=== PATIENT | female | born 1965 | race Caucasian/White ===

== ENCOUNTER 2018-03-07 20:41 | Emergency (ER) | payer BC ==
[~2018-03-07] VITALS: Ht 154.9 cm; Wt 56.2 kg
[2018-03-07] MEDS ORDERED: SODIUM CHLORIDE 0.9% 1000ML 1,000 ML IV STA (21:10)
[2018-03-07] MEDS ORDERED: PROMETHAZINE HCL (IM) 25 MG/ML VIAL IV STA (21:10)
[2018-03-07] MEDS ORDERED: ACETAMINOPHEN 1000 MG/100 ML IV STA (21:10)
[2018-03-07] MEDS ORDERED: ACETAMINOPHEN 325 MG TAB ONE (21:11)
[2018-03-07] MEDS ORDERED: ACETAMINOPHEN 325 MG TAB PO ONE (21:15)
[2018-03-07 21:31] LABS: BASOPHILS % 0.5 % (0.0-1.0); EOSINOPHILS % 0.4 % (0.0-6.0); HEMATOCRIT 34.7 % (34.2-44.1); HEMOGLOBIN 11.3 g/dL (12.0-16.0); LYMPHOCYTES # (AUTO) 1.3 (1.0-3.2); LYMPHOCYTES % 16.7 % (18.0-39.1); MEAN CORPUSCULAR HEMOGLOBIN 26.8 pg (28-32); MEAN CORPUSCULAR HGB CONC 32.6 g/dL (31-35); MEAN CORPUSCULAR VOLUME 82.4 fL (81-99); MONOCYTES # (AUTO) 0.1 (0.2-0.8); MONOCYTES % 1.4 % (4.4-11.3); NEUTROPHILS # (AUTO) 6.4 (2.1-6.9); NEUTROPHILS % 80.6 % (38.7-80.0); PLATELET COUNT 267 x10e3/uL (140-360); RED BLOOD COUNT 4.21 x10e6/uL (3.6-5.1); RED CELL DISTRIBUTION WIDTH 16.1 % (11.7-14.4)
[2018-03-07] MEDS ORDERED: CEFTRIAXONE SOD 1 GM VIAL IV STA (21:42)
[2018-03-07 21:45] LABS: BILIRUBIN,URINE NEGATIVE (NEGATIVE); CLARITY,URINE CLOUDY (CLEAR); COLOR,URINE YELLOW (YELLOW); KETONES,URINE NEGATIVE (NEGATIVE); LEUKOCYTE ESTERASE ,URINE 2+ (NEGATIVE); NITRITE,URINE NEGATIVE (NEGATIVE); PROTEIN,URINE DIPSTICK 2+ (NEGATIVE); URINE UROBILINOGEN 0.2 mg/dL (0.2 - 1)
[2018-03-07 21:47] LABS: ALANINE AMINOTRANSFERASE 15 IU/L (0-55); ALBUMIN 4.2 g/dL (3.5-5.0); ALKALINE PHOSPHATASE 108 IU/L (40-150); ANION GAP 18.6 mmol/L (8-16); BLOOD UREA NITROGEN 11 mg/dL (7-26); BUN/CREATININE RATIO 15 (6-25); CALCIUM 10.1 mg/dL (8.4-10.2); CARBON DIOXIDE 23 mmol/L (22-29); CHLORIDE 101 mmol/L (98-107); CREATININE, SERUM 0.74 mg/dL (0.57-1.11); EST GLOMERULAR FILTRATION RATE > 60 ML/MIN (60-); GLUCOSE 94 mg/dL (74-118); POTASSIUM 4.6 mmol/L (3.5-5.1); SODIUM 138 mmol/L (136-145)
[2018-03-07 21:55] LABS: BACTERIA,URINE FEW /HPF
[2018-03-07 21:56] LABS: AMPHETAMINES SCREEN,URINE NEGATIVE (NEGATIVE); BENZODIAZEPINES SCREEN,URINE NEGATIVE (NEGATIVE); PHENCYCLIDINE SCREEN,URINE NEGATIVE (NEGATIVE)
--- NOTE | 2018-03-07 22:24 | Diagnostic Imaging Report ---
EXAM: CT Abdomen and Pelvis WITHOUT contrast INDICATION: Flank pain, stone. COMPARISON: None. TECHNIQUE: Abdomen and pelvis were scanned utilizing a multidetector helical scanner from the lung base to the pubic symphysis without administration of IV contrast. Absence of intravenous contrast decreases sensitivity for detection of focal lesions and vascular pathology. Coronal and sagittal reformations were obtained. Stone protocol is performed. IV CONTRAST: None. ORAL CONTRAST: None RADIATION DOSE: Total DLP: 220.06 mGy*cm Estimated effective dose: (DLP x 0.015 x size factor) mSv COMPLICATIONS: None FINDINGS: LINES and TUBES: None. LOWER THORAX: Unremarkable HEPATOBILIARY: No focal hepatic lesions. No biliary ductal dilation. GALLBLADDER: There are cholecystectomy clips. SPLEEN: No splenomegaly. PANCREAS: No focal masses or ductal dilatation. ADRENALS: No adrenal nodules KIDNEYS/URETERS: There is mild right-sided hydroureteronephrosis without evidence of radiopaque stone along the tract. No cystic or solid mass lesions. No stones. GI TRACT: No abnormal distention, wall thickening, or evidence of bowel obstruction. Bariatric surgery changes noted in the gastric fundus and body . There are also postsurgical changes in the mid small bowel compatible with prior segmental resection. Appendix is not clearly identified. There is however no fat stranding or adenopathy in the right lower quadrant to suggest appendicitis. PELVIC ORGANS/BLADDER: Unremarkable. LYMPH NODES: No lymphadenopathy. VESSELS: There is mild atherosclerotic disease in the aorta and major arterial branches. PERITONEUM / RETROPERITONEUM: No free air or fluid. BONES: No fractures, lytic or blastic lesions SOFT TISSUES: Unremarkable. IMPRESSION: 1. Right kidney is slightly swollen with perirenal fat stranding and mild hydroureter nephrosis. No evidence of distal obstruction by stone or mass. This findings may be related to pyelonephritis or recently passed stone Signed by: Dr. Young Zepeda M.D. on 03/07/2018 10:20 PM
[2018-03-07] MEDS ORDERED: SODIUM CHLORIDE 0.9% 1000ML 1,000 ML IV ONE (22:45)
[2018-03-07] MEDS ORDERED: CEFDINIR300 MG PO (23:59)
[2018-03-07] MEDS ORDERED: ZOFRAN ODT4 MG SL (23:59)
[2018-03-07] MEDS ORDERED: PYRIDIUM100 MG PO (23:59)
[2018-03-08] VITALS: BP 120/71
[2018-03-12] MEDS ORDERED: LEVAQUIN500 MG PO (06:28)
== END 2018-03-08 00:13 | disposition home or self-care (01) ==
LOC: ER 20:41
DX: R10.9 Unspecified abdominal pain (principal); R11.2 Nausea with vomiting, unspecified; F32.9 Major depressive disorder, single episode, unspecified; N10 Acute pyelonephritis; Z98.84 Bariatric surgery status
CPT/HCPCS: 36415; 74176; 80053; 80307; 81001; 85025; 87040; 87086; 87186; 99284; J0696; J2550; J7030

== ENCOUNTER 2018-03-09 22:32 | Inpatient (IN) | payer BC ==
[~2018-03-09] VITALS: Ht 154.9 cm; Wt 68.6 kg
[~2018-03-09 22:32] MED LIST: CEFDINIR300 MG PO; PYRIDIUM100 MG PO; ZOFRAN ODT4 MG SL
--- OUTSIDE RECORDS SUMMARY | 2018-03-09 22:35 | XMS REPORT | Continuity of Care Document ---
Author Author [facility] Organization [facility] Address [address] [place] [address] Phone Unavailable Care Team Providers Care Terrestrial Ecologist Name Role Phone JANICE TABARES (NON STAFF) PCP Insurance Providers Guarantor Bita Aj Address [address] [place] [address] Email [email or web address] [facility] Policy Number [id number] Subscriber's Name Bita Aj Relationship 18 Self / Same As Patient Group Number [id number] Advance Directives Directive Response Recorded Date/Time Does the patient have an advance directive? No 03/07/18 10:36pm If yes, is advance directive on file with [facility]? No 03/07/18 10:36pm If not on file with [facility] will patient provide a copy? Yes 03/07/18 10:36pm Do you have a Directive to Physician? No 03/07/18 10:36pm Do you have a Medical Power of Honing Machine Operator Production? No 03/07/18 10:36pm Do you have an out of hospital Do Not Resuscitate Order? No 03/07/18 10:36pm Do you have any special needs we should be aware of? No 03/07/18 10:36pm Do you have a support person here with you today? Yes 03/07/18 10:36pm Did patient receive Notice of Privacy Practices? Yes 03/07/18 10:36pm Did patient receive patient rights and responsibilities? Yes 03/07/18 10:36pm Problems No problem information available. Medications Current Home Medications Medication Dose Units Route Directions Days Qty Instructions Start Date Cefdinir (Omnicef) 300 Mg Capsule 300 Mg Oral Twice A Day Ondansetron (Zofran Odt) 4 Mg Tab.rapdis 4 Mg Sublingual Every 6 Hours as needed for Nausea Phenazopyridine Hcl (Pyridium) 100 Mg Tablet 200 Mg Oral Three Times A Day Social History Smoking Status Start Date Stop Date Never Smoker Hospital Discharge Instructions No hospital discharge instruction information available. Plan of Care Discharge Date 03/08/18 12:13am Disposition HOME, SELF-CARE Condition at Discharge Stable Instructions/Education Provided Fever - Adult Flank Pain Pyelonephritis Forms Provided Work/School Excuse Prescriptions See Medication Section Referrals JANICE TABARES (NON STAFF) Order Date: Call for an appointment Address: [address] [place] [id number] Note: DRINK PLENTY OF FLUIDS NO ALCOHOL GET PLENTY OF REST. RETURN TO ER IF CONDITION WORSENS OR SYMPTOMS PERSIST. Functional Status No functional status information available. Allergies, Adverse Reactions, Alerts Allergen Type Severity Reaction Status Last Updated Tetracycline Allergy Severe Active 03/07/18 Immunizations No immunization information available. Vital Signs Acute Vital Signs Vital Response Date/Time Temperature (Fahrenheit) 99.6 degrees F (97.6 - 99.5) 03/08/2018 12:00am Pulse Pulse Rate (adult) 104 bpm (60 - 90) 03/08/2018 12:00am Respiratory Rate 19 bpm (12 - 24) 03/08/2018 12:00am Blood Pressure 120/71 mm Hg 03/08/2018 12:00am Height 5 ft 1 in 03/07/2018 9:03pm Weight 124 lb 03/07/2018 9:03pm Body Mass Index 23.4 kg/m^2 03/07/2018 9:03pm Results Laboratory Results Test Name Result Units Flags Reference Collection Date/Time Result Date/ Time Comments White Blood Count 7.95 x10e3/uL 4.8-10.8 03/07/2018 9:03/07/2018 9 :32pm Red Blood Count 4.21 x10e6/uL 3.6-5.1 03/07/2018 9:03/07/2018 9: 32pm Hemoglobin 11.3 g/dL L 12.0-16.0 03/07/2018 9:03/07/2018 9:32pm Hematocrit 34.7 % 34.2-44.1 03/07/2018 9:03/07/2018 9:32pm Mean Corpuscular Volume 82.4 fL 81-99 03/07/2018 9:03/07/2018 9: 32pm Mean Corpuscular Hemoglobin 26.8 pg L 28-32 03/07/2018 9:2017 9:32pm Mean Corpuscular Hemoglobin Concent 32.6 g/dL 31-35 03/07/2018 9:03/07/2018 9:32pm Red Cell Distribution Width 16.1 % H 11.7-14.4 03/07/2018 9:2017 9:32pm Platelet Count 267 x10e3/uL 140-360 03/07/2018 9:03/07/2018 9: 32pm Neutrophils (%) (Auto) 80.6 % H 38.7-80.0 03/07/2018 9:03/07/2018 9 :32pm Lymphocytes (%) (Auto) 16.7 % L 18.0-39.1 03/07/2018 9:03/07/2018 9 :32pm Monocytes (%) (Auto) 1.4 % L 4.4-11.3 03/07/2018 9:03/07/2018 9: 32pm Eosinophils (%) (Auto) 0.4 % 0.0-6.0 03/07/2018 9:03/07/2018 9: 32pm Basophils (%) (Auto) 0.5 % 0.0-1.0 03/07/2018 9:03/07/2018 9:32pm IM GRANULOCYTES % 0.4 % 0.0-1.0 03/07/2018 9:03/07/2018 9:32pm Neutrophils # (Auto) 6.4 2.1-6.9 03/07/2018 9:25pm 03/07/2018 9:32pm Lymphocytes # (Auto) 1.3 1.0-3.2 03/07/2018 9:03/07/2018 9:32pm Monocytes # (Auto) 0.1 L 0.2-0.8 03/07/2018 9:2503/07/2018 9:32pm Eosinophils # (Auto) 0.0 0.0-0.4 03/07/2018 9:03/07/2018 9:32pm Basophils # (Auto) 0.0 0.0-0.1 03/07/2018 9:03/07/2018 9:32pm Absolute Immature Granulocyte (auto 0.03 x10e3/uL 0-0.1 03/07/2018 9: 03/07/2018 9:32pm Urine Color YELLOW YELLOW 03/07/2018 9:03/07/2018 9:45pm Urine Clarity CLOUDY H CLEAR 03/07/2018 9:03/07/2018 9:45pm Urine Specific [place] 1.010 1.010-1.025 03/07/2018 9:252017 9:45pm Urine pH 6 5 - 7 03/07/2018 9:2503/07/2018 9:45pm Urine Leukocyte Esterase 2+ H NEGATIVE 03/07/2018 9:25pm 03/07/2018 9: 45pm Urine Nitrite NEGATIVE NEGATIVE 03/07/2018 9:03/07/2018 9:45pm Urine Protein 2+ H NEGATIVE 03/07/2018 9:25pm 03/07/2018 9:45pm Urine Glucose (UA) NEGATIVE NEGATIVE 03/07/2018 9:25pm 03/07/2018 9: 45pm Urine Ketones NEGATIVE NEGATIVE 03/07/2018 9:25pm 03/07/2018 9:45pm Urine Opiates Screen NEGATIVE NEGATIVE 03/07/2018 9:25pm 03/07/2018 9 :56pm Urine Barbiturates Screen NEGATIVE NEGATIVE 03/07/2018 9:25pm 2017 9:56pm Urine Phencyclidine Screen NEGATIVE NEGATIVE 03/07/2018 9:25pm 2017 9:56pm Urine Amphetamines Screen NEGATIVE NEGATIVE 03/07/2018 9:25pm 2017 9:56pm Urine Methamphetamines Screen NEGATIVE NEGATIVE 03/07/2018 9:25pm 9:56pm Urine Benzodiazepines Screen NEGATIVE NEGATIVE 03/07/2018 9:25pm 9:56pm This test provides only a screen. Positive results should be repeated by a confirmatory test. Urine Cocaine Screen NEGATIVE NEGATIVE 03/07/2018 9:25pm 03/07/2018 9 :56pm Urine Cannabinoids Screen NEGATIVE NEGATIVE 03/07/2018 9:25pm 2017 9:56pm THESE RESULTS ARE FOR MEDICAL TREATMENT ONLY *THIS REPORT CONTAINS UNCONFIRMED SCREENING RESULTS* POSITIVE RESULTS WILL BE CONFIRMED BY REFERENCE LAB UPON REQUEST CUT-OFF DRUG CLASS CONCENTRATION ng/mL Amphetamines 1000 Methamphetamines 1000 Cocaine 300 Opiate 300 Phencyclidine 25 Cannabinoid 50 Barbiturates 300 Benzodiazepine 300 Methadone 300 Urine Methadone Screen NEGATIVE NEGATIVE 03/07/2018 9:25pm 2017 9:56pm THESE RESULTS ARE FOR MEDICAL TREATMENT ONLY *THIS REPORT CONTAINS UNCONFIRMED SCREENING RESULTS* POSITIVE RESULTS WILL BE CONFIRMED BY REFERENCE LAB UPON REQUEST CUT-OFF DRUG CLASS CONCENTRATION ng/mL Amphetamines 1000 Methamphetamines 1000 Cocaine Metabolite 300 Opiate 300 Phencyclidine 25 Cannabinoid 50 Barbiturates 300 Benzodiazepine 300 Methadone 300 Urine Urobilinogen 0.2 mg/dL 0.2 - 1 03/07/2018 9:25pm 03/07/2018 9: 45pm Urine Bilirubin NEGATIVE NEGATIVE 03/07/2018 9:25pm 03/07/2018 9: 45pm Urine Blood 2+ H NEGATIVE 03/07/2018 9:25pm 03/07/2018 9:45pm Urine WBC 11-20 /HPF H 0-5 03/07/2018 9:25pm 03/07/2018 9:55pm Urine RBC 6-10 /HPF H 0-5 03/07/2018 9:25pm 03/07/2018 9:55pm Urine Bacteria FEW /HPF NONE 03/07/2018 9:25pm 03/07/2018 9:55pm Urine Epithelial Cells NONE /LPF NONE 03/07/2018 9:25pm 03/07/2018 9: 55pm Sodium Level 138 mmol/L 136-145 03/07/2018 9:25pm 03/07/2018 9:47pm Potassium Level 4.6 mmol/L 3.5-5.1 03/07/2018 9:03/07/2018 9:47pm Chloride Level 101 mmol/L 98-107 03/07/2018 9:03/07/2018 9:47pm Carbon Dioxide Level 23 mmol/L 22-03/07/2018 9:03/07/2018 9: 47pm Anion Gap 18.6 mmol/L H 8-03/07/2018 9:03/07/2018 9:47pm Blood Urea Nitrogen 11 mg/dL 7-03/07/2018 9:03/07/2018 9:47pm Creatinine 0.74 mg/dL 0.57-1.11 03/07/2018 9:03/07/2018 9:47pm BUN/Creatinine Ratio 15 05-0603/07/2018 9:03/07/2018 9:47pm Estimat Glomerular Filtration Rate > 60 ML/MIN 6003/07/2018 9: 9:47pm Ranges were taken from the National Kidney Disease Education Program and the National Kidney Foundation literature. Reference ranges: 60 or greater: Normal 16-59 (for 3 consecutive months): Chronic kidney disease 15 or less: Kidney failure Glucose Level 94 mg/dL 74-118 03/07/2018 9:03/07/2018 9:47pm Calcium Level 10.1 mg/dL 8.4-10.2 03/07/2018 9:03/07/2018 9:47pm Total Bilirubin 0.4 mg/dL 0.2-1.2 03/07/2018 9:03/07/2018 9:47pm Aspartate Amino Transf (AST/SGOT) 23 IU/L 5-34 03/07/2018 9:2017 9:47pm Alanine Aminotransferase (ALT/SGPT) 15 IU/L 0-55 03/07/2018 9: 9:47pm Total Protein 8.5 g/dL H 6.5-8.1 03/07/2018 9:03/07/2018 9:47pm Albumin 4.2 g/dL 3.5-5.0 03/07/2018 9:03/07/2018 9:47pm Globulin 4.3 g/dL H 2.3-3.5 03/07/2018 9:25pm 03/07/2018 9:47pm Albumin/Globulin Ratio 1.0 0.8-2.0 03/07/2018 9:25pm 03/07/2018 9: 47pm Alkaline Phosphatase 108 IU/L 40-150 03/07/2018 9:25pm 03/07/2018 9: 47pm Procedures Procedure Status Date Provider(s) CT of abdomen and pelvis without contrast Active 03/07/18 YEE SUTHERLAND MANAGER CONSUMER INSIGHTS Encounters Encounter Location Arrival/Admit Date Discharge/Depart Date Attending Provider Departed Emergency Room [facility] 03/07/18 8:41pm 12:13am TERESA DYE MD
--- OUTSIDE RECORDS SUMMARY | 2018-03-09 22:35 | XMS REPORT ---
Author Author [facility] Address Unknown Phone Unavailable Care Team Providers Care Ssis Architect Name Role Phone TERESA DYE Unavailable Unavailable Problems This patient has no known problems. Allergies, Adverse Reactions, Alerts This patient has no known allergies or adverse reactions. Medications This patient has no known medications. Results Test Description Test Time Test Comments Text Results Atomic Results Result Comments CT ABDOMEN/PELVIS WO [address] [address] Patient Name: JENNIFER HONEYCUTT MR #: [id number] : 1965 Age/Sex: 52/F Req #: [id number] Adm Physician: Ordered by: YEE SUTHERLAND PEANUT PICKER Report # : [id number] Location: ER Room/Bed: Procedure: [id number] CT/CT ABDOMEN/PELVIS WO Exam Date: 03/07/18 Exam Time: 2134 REPORT STATUS: Signed EXAM: CT Abdomen and Pelvis WITHOUT contrast INDICATION: Flank pain, stone. COMPARISON: None. TECHNIQUE: Abdomen and pelvis were scanned utilizing a multidetector helical scanner from the lung base to the pubic symphysis without administration of IV contrast. Absence of intravenous contrast decreases sensitivity for detection of focal lesions and vascular pathology. Coronal and sagittal reformations were obtained. Stone protocol is performed. IV CONTRAST: None. ORAL CONTRAST: None RADIATION DOSE: Total DLP: 220.06 mGy*cm Estimated effective dose: (DLP x 0.015 x size factor) mSv COMPLICATIONS: None FINDINGS: LINES and TUBES: None. LOWER THORAX: Unremarkable HEPATOBILIARY: No focal hepatic lesions. No biliary ductal dilation. GALLBLADDER: There are cholecystectomy clips. SPLEEN: No splenomegaly. PANCREAS: No focal masses or ductal dilatation. ADRENALS: No adrenal nodules KIDNEYS/URETERS: There is mild right-sided hydroureteronephrosis without evidence of radiopaque stone along the tract. No cystic or solid mass lesions. No stones. GI TRACT: No abnormal distention, wall thickening, or evidence of bowel obstruction. Bariatric surgery changes noted in the gastric fundus and body . There are also postsurgical changes in the mid small bowel compatible with prior segmental resection. Appendix is not clearly identified. There is however no fat stranding or adenopathy in the right lower quadrant to suggest appendicitis. PELVIC ORGANS/BLADDER: Unremarkable. LYMPH NODES: No lymphadenopathy. VESSELS: There is mild atherosclerotic disease in the aorta and major arterial branches. PERITONEUM / RETROPERITONEUM: No free air or fluid. BONES: No fractures, lytic or blastic lesions SOFT TISSUES: Unremarkable. IMPRESSION: 1. Right kidney is slightly swollen with perirenal fat stranding and mild hydroureter nephrosis. No evidence of distal obstruction by stone or mass. This findings may be related to pyelonephritis or recently passed stone Signed by: Dr. Young Zepeda M.D. on 03/07/2018 10:20 PM Dictated By: YOUNG HERBERT MD 19 Transcribed By: BELLE on 03/07/182219 COPY TO: YEE SUTHERLAND NP
[2018-03-09] MEDS ORDERED: SODIUM CHLORIDE 0.9% 1000ML 1,000 ML IV ONE (22:45)
[2018-03-09 23:03] LABS: BASOPHILS % 0.5 % (0.0-1.0); EOSINOPHILS # (AUTO) 0.1 (0.0-0.4); EOSINOPHILS % 1.5 % (0.0-6.0); HEMOGLOBIN 9.3 g/dL (12.0-16.0); LYMPHOCYTES # (AUTO) 1.4 (1.0-3.2); LYMPHOCYTES % 24.2 % (18.0-39.1); MEAN CORPUSCULAR HEMOGLOBIN 26.6 pg (28-32); MEAN CORPUSCULAR VOLUME 85.7 fL (81-99); MONOCYTES # (AUTO) 0.5 (0.2-0.8); MONOCYTES % 7.7 % (4.4-11.3); NEUTROPHILS # (AUTO) 3.9 (2.1-6.9); NEUTROPHILS % 65.8 % (38.7-80.0); PLATELET COUNT 232 x10e3/uL (140-360); RED CELL DISTRIBUTION WIDTH 16.3 % (11.7-14.4)
[2018-03-09 23:04] LABS: CLARITY,URINE HAZY (CLEAR); COLOR,URINE ORANGE (YELLOW); LEUKOCYTE ESTERASE ,URINE 2+ (NEGATIVE); NITRITE,URINE POSITIVE (NEGATIVE); PROTEIN,URINE DIPSTICK 2+ (NEGATIVE)
[2018-03-09 23:05] LABS: BILIRUBIN,URINE 1+ (NEGATIVE); KETONES,URINE 1+ (NEGATIVE); URINE UROBILINOGEN 4 mg/dL (0.2 - 1)
--- NOTE | 2018-03-09 23:15 | Diagnostic Imaging Report ---
EXAMINATION: CHEST SINGLE (PORTABLE) INDICATION: Fever. COMPARISON: None FINDINGS: TUBES and LINES: None. LUNGS: Lungs are not well inflated. Lungs are clear. There is no evidence of pneumonia or pulmonary edema. PLEURA: No pleural effusion or pneumothorax. HEART AND MEDIASTINUM: The cardiomediastinal silhouette is unremarkable. BONES AND SOFT TISSUES: No acute osseous lesion. Soft tissues are unremarkable. UPPER ABDOMEN: No free air under the diaphragm. IMPRESSION: No acute thoracic abnormality. Signed by: Dr. Young Zepeda M.D. on 03/09/2018 11:11 PM
[2018-03-09 23:17] LABS: ALANINE AMINOTRANSFERASE 54 IU/L (0-55); ALBUMIN/GLOBULIN RATIO 0.8 (0.8-2.0); ALKALINE PHOSPHATASE 189 IU/L (40-150); ANION GAP 13.5 mmol/L (8-16); CALCIUM 9.1 mg/dL (8.4-10.2); CARBON DIOXIDE 24 mmol/L (22-29); CHLORIDE 102 mmol/L (98-107); CREATININE, SERUM 0.71 mg/dL (0.57-1.11); EST GLOMERULAR FILTRATION RATE > 60 ML/MIN (60-); GLUCOSE 88 mg/dL (74-118); POTASSIUM 3.5 mmol/L (3.5-5.1); SODIUM 136 mmol/L (136-145)
[2018-03-09 23:29] LABS: BACTERIA,URINE FEW /HPF; BLOOD UREA NITROGEN 12 mg/dL (7-26); BUN/CREATININE RATIO 16 (6-25); EPITHELIAL CELLS,URINE FEW /LPF; WBC,URINE (MAN) >50 /HPF (0-5)
[2018-03-10] VITALS (7 sets, daily range): BP systolic 122–146; BP diastolic 57–81
[2018-03-10] MEDS ORDERED: ONDANSETRON HCL INJ 2 MG/ML VIAL IV PRN
[2018-03-10] MEDS: PIPER-TAZ 3.375 GM 50 ML IV SCH ×4 (00:23→21:50)
[2018-03-10] MEDS: SODIUM CHLORIDE 0.9% 1000ML 1,000 ML IV SCH ×3 (01:19→23:21)
[2018-03-10] MEDS: ACETAMINOPHEN 325 MG TAB PO PRN ×3 (04:15→16:20)
[2018-03-10] MEDS ORDERED: ZOLOFT50 MG PO (04:52)
--- NOTE | 2018-03-10 13:31 | History and Physical ---
PRIMARY CARE PHYSICIAN: Dr. Appiah. CHIEF COMPLAINT: Right flank pain. HISTORY OF PRESENT ILLNESS: This is a 52-year-old woman with a history of obesity, known to have right flank pain. She came to the emergency room with fever and was started on Ceftin here. The patient requested to go home. She was sent home on Ceftin. However, at home she developed further fevers, and she came back to the hospital and admitted for IV antibiotics for acute right-sided pyelonephritis. PAST MEDICAL HISTORY: Obesity. PAST SURGICAL HISTORY: Mariah-en-Y gastric bypass, tubal ligation, cholecystectomy, x2, tummy tuck. ALLERGIES: PER ELECTRONIC MEDICAL RECORDS. FAMILY, SOCIAL HISTORY: The patient is . She has 2 children. Occasional alcohol. No cigarettes or illicits. 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 MEDICATIONS: Per electronic medical records. REVIEW OF SYSTEMS: Denies any dizziness or chest pain. PHYSICAL EXAMINATION VITAL SIGNS: Reviewed. GENERAL APPEARANCE: A tired-appearing woman resting in the bed. HEENT: Anicteric. Pupils responsive to light. No oral lesions. CARDIOVASCULAR: Normal S1 and S2. No murmurs. LUNGS: Moderate breath sounds, ABDOMEN: Soft and nontender. Nondistended. The right flank is tender to palpation. EXTREMITIES: There is no edema. SKIN: Dry. PSYCHIATRIC: Normal affect. LABS: Reviewed. MEDICATIONS: Reviewed. ASSESSMENT AND PLAN: A 52-year-old woman. 1. Failed outpatient antibiotic treatment for acute right-sided pyelonephritis. Will use IV antibiotics here. She is currently on IV Zosyn. 2. Escherichia coli urinary tract infection. Testing done on when she was first here. Now positive for Escherichia coli, but it is quite sensitive. We will keep on IV antibiotics and reassess here. 3. Normocytic anemia, monitor. 4. Overweight state. Continue caloric restriction as an outpatient. 5. Right flank pain. P.r.n. pain medication. 6. Prophylaxis: Will use Lovenox and Pepcid. DISPOSITION: Monitor closely. Follow up cultures. Job#: [id number]
[2018-03-10] MEDS: ENOXAPARIN SOD INJ 40 MG/0.4 ML SYR SC SCH (16:20)
[2018-03-10] MEDS: FAMOTIDINE 20 MG TAB PO SCH (16:20)
[2018-03-10] MEDS: MORPHINE SULFATE 2 MG/ML SYR IV PRN (21:23)
[2018-03-11] VITALS (8 sets, daily range): BP systolic 128–151; BP diastolic 62–78
[2018-03-11] MEDS: ACETAMINOPHEN 325 MG TAB PO PRN ×2 (00:01→15:28)
[2018-03-11] MEDS: SODIUM CHLORIDE 0.9% 1000ML 1,000 ML IV SCH ×2 (00:01→20:10)
[2018-03-11] MEDS: PIPER-TAZ 3.375 GM 50 ML IV SCH ×3 (05:30→21:48)
[2018-03-11 07:27] LABS: BASOPHILS % 0.5 % (0.0-1.0); EOSINOPHILS # (AUTO) 0.1 (0.0-0.4); EOSINOPHILS % 2.2 % (0.0-6.0); HEMATOCRIT 28.2 % (34.2-44.1); HEMOGLOBIN 8.6 g/dL (12.0-16.0); LYMPHOCYTES # (AUTO) 1.1 (1.0-3.2); LYMPHOCYTES % 27.9 % (18.0-39.1); MEAN CORPUSCULAR HEMOGLOBIN 26.5 pg (28-32); MEAN CORPUSCULAR HGB CONC 30.5 g/dL (31-35); MEAN CORPUSCULAR VOLUME 86.8 fL (81-99); MONOCYTES # (AUTO) 0.5 (0.2-0.8); NEUTROPHILS # (AUTO) 2.3 (2.1-6.9); NEUTROPHILS % 56.4 % (38.7-80.0); PLATELET COUNT 214 x10e3/uL (140-360); RED BLOOD COUNT 3.25 x10e6/uL (3.6-5.1); RED CELL DISTRIBUTION WIDTH 16.4 % (11.7-14.4)
[2018-03-11 08:02] LABS: ALANINE AMINOTRANSFERASE 65 IU/L (0-55); ALBUMIN 2.6 g/dL (3.5-5.0); ALBUMIN/GLOBULIN RATIO 0.7 (0.8-2.0); ALKALINE PHOSPHATASE 321 IU/L (40-150); ANION GAP 11.4 mmol/L (8-16); BLOOD UREA NITROGEN 8 mg/dL (7-26); BUN/CREATININE RATIO 11 (6-25); CALCIUM 8.8 mg/dL (8.4-10.2); CARBON DIOXIDE 27 mmol/L (22-29); CHLORIDE 107 mmol/L (98-107); CREATININE, SERUM 0.71 mg/dL (0.57-1.11); EST GLOMERULAR FILTRATION RATE > 60 ML/MIN (60-); GLUCOSE 92 mg/dL (74-118); POTASSIUM 4.4 mmol/L (3.5-5.1); SODIUM 141 mmol/L (136-145)
--- NOTE | 2018-03-11 08:56 | Progress Note ---
DATE: March 11, 2018 TIME: 8:20 a.m. OVERNIGHT: states that the patient has been somewhat goofy. The patient continues to have mild flank discomfort, but less. REVIEW OF SYSTEMS: Denies any dizziness or chest pain. PHYSICAL EXAMINATION VITAL SIGNS: Reviewed. GENERAL: A tired-appearing woman resting in bed. HEENT: Anicteric. CARDIOVASCULAR: Normal S1 and S2. LUNGS: Moderate breath sounds. ABDOMEN: Soft, nontender and nondistended. Right flank has minimal tenderness. EXTREMITIES: No edema. SKIN: Dry. PSYCHIATRIC: Normal affect. LABS: Reviewed. MEDICATIONS: Reviewed. ASSESSMENT: A 52-year-old woman with: 1. Failed outpatient antibiotic treatment for diffuse right-sided pyelonephritis. 2. Escherichia coli urinary tract infection. 3. Normocytic anemia. 4. Overweight state. 5. Right flank pain. PLAN 1. Continue IV antibiotics today. Possible discharge home tomorrow on oral medications. 2. Review medication regimen. Morphine may be involved in the patient's change in mood. However, they state that this has been recurrent prior to starting morphine. Will continue to monitor. 3. Follow up labs. Job#: [id number] GISSELL
[2018-03-11] MEDS: FAMOTIDINE 20 MG TAB PO SCH ×2 (08:58→16:31)
[2018-03-11] MEDS ORDERED: SERTRALINE HCL 50 MG TAB PO SCH (09:00)
[2018-03-11] MEDS ORDERED: ONDANSETRON HCL 4 MG ORAL DISINTEGRATING TAB PO PRN (10:30)
[2018-03-11] MEDS: ENOXAPARIN SOD INJ 40 MG/0.4 ML SYR SC SCH (16:31)
[2018-03-11] MEDS: MORPHINE SULFATE 2 MG/ML SYR IV PRN (21:22)
[2018-03-12] VITALS: BP 115/57
[2018-03-12] MEDS: ACETAMINOPHEN 325 MG TAB PO PRN (03:48)
[2018-03-12 04:00] VITALS: BP 121/63
[2018-03-12] MEDS: SODIUM CHLORIDE 0.9% 1000ML 1,000 ML IV SCH ×2 (04:11)
[2018-03-12] MEDS: PIPER-TAZ 3.375 GM 50 ML IV SCH (06:04)
[2018-03-12] MEDS ORDERED: LEVAQUIN500 MG PO (06:28)
[2018-03-12 07:30] VITALS: BP 135/68
[2018-03-12] MEDS: FAMOTIDINE 20 MG TAB PO SCH (07:30)
--- NOTE | 2018-03-12 07:34 | Discharge Summary ---
PRINCIPAL DIAGNOSES 1. Failed outpatient antibiotic treatment for right-sided pyelonephritis. 2. Escherichia coli urinary tract infection. 3. Normocytic anemia. 4. Overweight state. SECONDARY DIAGNOSIS: Obesity. CHIEF COMPLAINT: Right flank pain. HISTORY OF PRESENT ILLNESS: A 52-year-old woman with right flank pain. Refer to the H and P for further details. HOSPITAL COURSE: The patient was found to have E. coli urinary tract infection. She had failed outpatient antibiotic treatment for the right-sided pyelonephritis. She received IV Zosyn and doing much better now. No leukocytosis at this time. She had overweight state. Labs were obtained. Normocytic anemia was monitored and remained stable. The patient is currently appropriate for discharge and follow up. DISCHARGE MEDICATIONS: Per electronic medical record and include Levaquin 500 mg daily for 10 additional days. CONDITION ON DISCHARGE: Stable and improved. DISCHARGE LOCATION: Home. FOLLOWUP: Primary care doctor in 1 week. MARITZA MARY MD Job#: [id number] [place]
[2018-03-12 07:39] VITALS: BP 135/68
== END 2018-03-12 08:29 | disposition home or self-care (01) | DRG 690 ==
LOC: ER 22:32 → ERHOLD 03-10 00:05 → MED/SURG3 03-10 00:21
PROVIDERS: ADMIT Internal Medicine; ATTEND Internal Medicine
DX: N10 Acute pyelonephritis (principal); N39.0 Urinary tract infection, site not specified; B96.20 Unspecified Escherichia coli [E. coli] as the cause of diseases classified elsewhere; D64.9 Anemia, unspecified; Z68.28 Body mass index [BMI] 28.0-28.9, adult; E66.9 Obesity, unspecified
CPT/HCPCS: 36415; 71045; 80053; 81001; 83605; 85025; 87040; 87086; 96361; 99284; J1650; J2270; J2543; J7030

== ENCOUNTER 2021-11-23 15:40 | Emergency (ER) | payer BC ==
[~2021-11-23] VITALS: Ht 154.9 cm; Wt 81.0 kg
[~2021-11-23 15:40] MED LIST changes: +LEVAQUIN500 MG PO; +ZOLOFT50 MG PO
[2021-11-23] MEDS ORDERED: DOXEPIN HCL25 MG PO (15:55)
[2021-11-23] MEDS ORDERED: TRAZODONE HCL100 MG PO (15:55)
[2021-11-23] MEDS ORDERED: LEXAPRO20 MG PO (15:55)
[2021-11-23] MEDS ORDERED: CONCERTA36 MG (15:55)
[2021-11-23] MEDS ORDERED: FAMOTIDINE 20 MG/2 ML VIAL IV STA (16:07)
[2021-11-23] MEDS ORDERED: EPINEPHRINE 0.3 MG/0.3 ML PEN.INJCTR SC STA (16:08)
[2021-11-23] MEDS ORDERED: DIPHENHYDRAMINE HCL INJ 50 MG/ML VIAL IV ONE (16:15)
[2021-11-23] MEDS ORDERED: DEXAMETHASONE SOD PHOS 10 MG/1 ML VIAL IV ONE (16:15)
[2021-11-23] MEDS ORDERED: DEXAMETHASONE SOD PHOS INJ 4 MG/ML SDV IV ONE (16:15)
[2021-11-23] MEDS ORDERED: EPINEPHRINE HCL 1:1000 1ML 1 MG/ML AMP ONE ×2 (16:19→16:22)
[2021-11-23] MEDS ORDERED: DIPHENHYDRAMINE HCL INJ 50 MG/ML VIAL ONE (16:19)
[2021-11-23] MEDS ORDERED: FAMOTIDINE 20 MG/2 ML VIAL IV ONE (16:19)
[2021-11-23] MEDS ORDERED: DEXAMETHASONE SOD PHOS INJ 4 MG/ML SDV ONE (16:19)
[2021-11-23] MEDS ORDERED: SODIUM CHLORIDE 0.9% 1000ML 1,000 ML ONE (16:22)
[2021-11-23] MEDS ORDERED: SODIUM CHLORIDE 0.9% 1000ML 1,000 ML IV ONE (16:30)
[2021-11-23] MEDS ORDERED: HYDROXYZIN10 MG/5 ML PO (17:16)
== END 2021-11-23 17:28 | disposition home or self-care (01) ==
LOC: FSED 16:08
DX: R21 Rash and other nonspecific skin eruption (principal); T78.40XA Allergy, unspecified, initial encounter; L30.9 Dermatitis, unspecified; F41.9 Anxiety disorder, unspecified; F90.9 Attention-deficit hyperactivity disorder, unspecified type; Z98.84 Bariatric surgery status
CPT/HCPCS: 80053; 85025; 96372; 96374; 96375; 99284; J0171; J1100; J1200; J7030